=== PATIENT | male | born 1980 | race Caucasian/White ===

== ENCOUNTER 2016-06-15 08:04 | Emergency (ER) | payer OTHER | END 2016-06-15 10:30 | disposition home or self-care (01) | LOC: ER1 08:04 | DX: L03.116 Cellulitis of left lower limb (principal); B95.62 Methicillin resistant Staphylococcus aureus infection as the cause of diseases classified elsewhere; F17.200 Nicotine dependence, unspecified, uncomplicated | CPT/HCPCS: 36415; 99283 ==